=== PATIENT | male | born 1985 | race Caucasian/White ===

== ENCOUNTER 2020-12-12 07:17 | Inpatient (IN) | payer BC ==
[~2020-12-12] VITALS: Ht 193 cm; Wt 163.3 kg
[2020-12-12] VITALS (9 sets, daily range): BP systolic 95–150; BP diastolic 59–92
[2020-12-12] MEDS ORDERED: IV NORMAL SALINE 1000ML BAG 1,000 ML IV ONE ×2 (07:30→09:15)
--- NOTE | 2020-12-12 07:37 | PHYS DOC ---
Past Medical History Past Medical History: High Cholesterol, Other Additional Past Medical Histor: morbid obesity Past Surgical History: Other Additional Past Surgical Histo: vasectomy Smoking Status: Current Every Day Smoker Additional Information: 11/11- ppd Alcohol Use: Rarely General Adult EDM: Chief Complaint: URINARY FREQUENCY HPI: HPI: Patient is a 35 year old male who presented to ER for evaluation of dry mouth, frequent urination, constipation for a week. 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 Patient has no history of diabetic or hypertension. Patient however has a strong family history of diabetic. Patient denies any chest pain, no cough, no fever. Patient denies any abdominal pain. Patient is a smoker. Review of Systems: Review of Systems: Constitutional: Denies fever or chills. [] Eyes: Denies change in visual acuity. [] HENT: Denies nasal congestion or sore throat. [] Respiratory: Denies cough or shortness of breath. [] Cardiovascular: Denies chest pain or edema. [] GI: Denies abdominal pain, positive for nausea and constipation : Denies dysuria. Positive for frequent urination Musculoskeletal: Denies back pain or joint pain. [] Integument: Denies rash. [] Neurologic: Denies headache, focal weakness or sensory changes. [] Endocrine: Denies polyuria or polydipsia. [] Lymphatic: Denies swollen glands. [] Psychiatric: Denies depression or anxiety. [] Heart Score: Risk Factors: Risk Factors: DM, Current or recent (<one month) smoker, HTN, HLP, family history of CAD, obesity. Risk Scores: Score 0 - 3: 2.5% MACE over next 6 weeks - Discharge Home Score 4 - 6: 20.3% MACE over next 6 weeks - Admit for Clinical Observation Score 7 - 10: 72.7% MACE over next 6 weeks - Early Invasive Strategies Current Medications: Current Medications Medications (Trade) Dose Ordered Sig/Kristin Start Time Stop Time Status Last Admin Dose Admin Sodium Chloride 1,000 ml @ 1,000 mls/hr 1X ONCE 12/12/20 07:30 12/12/20 08:29 Allergies: Allergies: Allergies Coded Allergies Type Severity Reaction Last Updated Verified No Known Drug Allergies 12/12/20 No Physical Exam: PE: Constitutional: Well developed, well nourished, no acute distress, non-toxic appearance. [] HENT: Normocephalic, atraumatic, bilateral external ears normal, oral mucosa is very dried, no oral exudates, nose normal. [] Eyes: PERRLA, EOMI, conjunctiva normal, no discharge. [] Neck: Normal range of motion, no tenderness, supple, no stridor. [] Cardiovascular: Sinus tachycardia, regular rhythm, no murmur [] Lungs & Thorax: Bilateral breath sounds clear to auscultation [] Abdomen: Bowel sounds normal, soft, no tenderness, no masses, no pulsatile masses. [] Skin: Warm, dry, no erythema, no rash. [] Back: No tenderness, no CVA tenderness. [] Extremities: No tenderness, no cyanosis, no clubbing, ROM intact, no edema. [] Neurologic: Alert and oriented X 3, normal motor function, normal sensory function, no focal deficits noted. [] Psychologic: Affect normal, judgement normal, mood normal. [] Current Patient Data: Labs: Laboratory Tests Test 12/12/20 07:42 12/12/20 08:00 12/12/20 08:15 White Blood Count 12.7 x10^3/uL Red Blood Count 5.66 x10^6/uL Hemoglobin 16.5 g/dL Hematocrit 49.4 % Mean Corpuscular Volume 87 fL Mean Corpuscular Hemoglobin 29 pg Mean Corpuscular Hemoglobin Concent 33 g/dL Red Cell Distribution Width 13.4 % Platelet Count 296 x10^3/uL Neutrophils (%) (Auto) 64 % Lymphocytes (%) (Auto) 25 % Monocytes (%) (Auto) 8 % Eosinophils (%) (Auto) 2 % Basophils (%) (Auto) 2 % Neutrophils # (Auto) 8.1 x10^3/uL Lymphocytes # (Auto) 3.1 x10^3/uL Monocytes # (Auto) 1.0 x10^3/uL Eosinophils # (Auto) 0.3 x10^3/uL Basophils # (Auto) 0.2 x10^3/uL Sodium Level 127 mmol/L Potassium Level 4.9 mmol/L Chloride Level 88 mmol/L Carbon Dioxide Level 19 mmol/L Anion Gap 20 Blood Urea Nitrogen 28 mg/dL Creatinine 1.5 mg/dL Estimated GFR (Cockcroft-Gault) 52.7 BUN/Creatinine Ratio 19 Glucose Level 738 mg/dL Calcium Level 9.9 mg/dL Magnesium Level 2.3 mg/dL Total Bilirubin 0.5 mg/dL Aspartate Amino Transf (AST/SGOT) Pending Alanine Aminotransferase (ALT/SGPT) Pending Alkaline Phosphatase 174 U/L Total Protein 7.4 g/dL Albumin 3.5 g/dL Albumin/Globulin Ratio 0.9 Acetone Level Sm pos Urine Collection Type Unknown Urine Color Yellow Urine Clarity Clear Urine pH 5.0 Urine Specific [place] >=1.030 Urine Protein Negative mg/dL Urine Glucose (UA) >=1000 mg/dL Urine Ketones (Stick) 40 mg/dL Urine Blood Negative Urine Nitrite Negative Urine Bilirubin Negative Urine Urobilinogen Dipstick 0.2 mg/dL Urine Leukocyte Esterase Negative Urine RBC 0 /HPF Urine WBC 0 /HPF Urine Bacteria 0 /HPF O2 Saturation 94 % Arterial Blood pH 7.35 Arterial Blood pCO2 at Patient Temp 31 mmHg Arterial Blood pO2 at Patient Temp 73 mmHg Arterial Blood HCO3 17 mmol/L Arterial Blood Base Excess -7 mmol/L FiO2 21 Current Medications Medications (Trade) Dose Ordered Sig/Kristin Route PRN Reason Start Time Stop Time Status Last Admin Dose Admin Sodium Chloride 1,000 ml @ 1,000 mls/hr 1X ONCE IV 12/12/20 07:30 12/12/20 08:29 DC 12/12/20 07:48 Insulin Human Regular (HumuLIN R VIAL) 15 unit 1X ONCE IV 12/12/20 08:45 12/12/20 08:46 DC 12/12/20 08:48 Vital Signs: Vital Signs Date Time Temp Pulse Resp B/P (MAP) Pulse Ox O2 Delivery O2 Flow Rate FiO2 12/12/20 07:23 99.1 129 20 182/114 (136) 96 Room Air 99.1 EKG: EKG: Current Medications Medications (Trade) Dose Ordered Sig/Kristin Route PRN Reason Start Time Stop Time Status Last Admin Dose Admin Sodium Chloride 1,000 ml @ 1,000 mls/hr 1X ONCE IV 12/12/20 07:30 12/12/20 08:29 12/12/20 07:48 [] Radiology/Procedures: Radiology/Procedures: [] Course & Med Decision Making: Course & Med Decision Making Pertinent Labs and Imaging studies reviewed. (See chart for details) Patient is a 35-year-old male with new onset diabetic, in mild DKA, dehydration, hypertensive urgency. Patient will be admitted to hospital for further evaluation and treatment. Discussed with Dr. Payne who agreed to admit the patient. Patient was given IV fluid, IV insulin in the ER. His blood pressure elevated and he will be given some beta-reny. Critical care time was [30] minutes which includes time at bedside, spent in discussion of patient's care with specialist and/or family members, with interpretation of laboratory and/or radiological studies and is exclusive of procedures. Dragon Disclaimer: Dragon Disclaimer: This electronic medical record was generated, in whole or in part, using a voice recognition dictation system. Departure Departure Impression: Primary Impression: DKA (diabetic ketoacidoses) Additional Impressions: Hypertension Dehydration Disposition: 09 ADMITTED INPT THIS HOSP Admitting Physician: ESTRADA (Dr. Payne) Condition: STABLE (DR. PAYNE) BREANNA HOLCOMB DO Dec 12, 2020 07:37
[2020-12-12 08:05] LABS: BASO # 0.2 x10^3/uL (0.0-0.2); BASO % 2 % (0-3); EOS # 0.3 x10^3/uL (0.0-0.7); EOS % 2 % (0-3); HEMATOCRIT 49.4 % (39.0-53.0); HEMOGLOBIN 16.5 g/dL (13.0-17.5); LYMPH # 3.1 x10^3/uL (1.0-4.8); LYMPH % 25 % (24-48); MEAN CORPUSCULAR HEMOGLOBIN 29 pg (25-35); MEAN CORPUSCULAR HGB CONC 33 g/dL (31-37); MEAN CORPUSCULAR VOLUME 87 fL (79-100); MONO % 8 % (0-9); NEUT # 8.1 x10^3/uL (1.8-7.7); NEUT % 64 % (31-73); PLATELET COUNT 296 x10^3/uL (140-400); RED BLOOD COUNT 5.66 x10^6/uL (4.30-5.70); RED CELL DISTRIBUTION WIDTH 13.4 % (11.5-14.5); WHITE BLOOD COUNT 12.7 x10^3/uL (4.0-11.0)
[2020-12-12 08:18] LABS: BILIRUBIN,URINE NEGATIVE (NEG); CLARITY,URINE CLEAR; COLOR,URINE YELLOW; NITRITE,URINE NEGATIVE (NEG); PROTEIN,URINE NEGATIVE (NEG-TRACE); UROBILINOGEN,URINE 0.2 mg/dL (0.2 mg/dL)
[2020-12-12 08:27] LABS: BACTERIA,URINE 0 /HPF (0-FEW); RBC,URINE 0 /HPF (0-2); WBC,URINE 0 /HPF (0-4)
[2020-12-12 08:28] LABS: BASE EXCESS ABG -7 mmol/L (-3-3); HCO3 ABG 17 mmol/L (21-28); PCO2 ABG 31 mmHg (35-46); PO2 ABG 73 mmHg (85-108); SAT O2 ABG 94 % (92-99)
[2020-12-12 08:32] LABS: FIO2 ABG 21
[2020-12-12] MEDS ORDERED: INSULIN REGULAR 100 UNIT/ML 3ML VIAL. IV ONE (08:45)
[2020-12-12 08:47] LABS: ALBUMIN 3.5 g/dL (3.4-5.0); ALBUMIN/GLOBULIN RATIO 0.9 (1.0-1.7); CALCIUM 9.9 mg/dL (8.5-10.1); CREATININE 1.5 mg/dL (0.7-1.3); GFR 52.7; MAGNESIUM 2.3 mg/dL (1.8-2.4); POTASSIUM 4.9 mmol/L (3.5-5.1); TOTAL BILIRUBIN 0.5 mg/dL (0.2-1.0); TOTAL PROTEIN 7.4 g/dL (6.4-8.2)
[2020-12-12] MEDS ORDERED: ZOLPIDEM 5 MG TABLET. PO PRN (09:15)
[2020-12-12] MEDS ORDERED: ONDANSETRON PF 4 MG/2 ML VIAL. IVP PRN (09:15)
[2020-12-12] MEDS ORDERED: METOPROLOL IV PUSH 5 MG/5 ML VIAL. IVP ONE (09:15)
[2020-12-12] MEDS ORDERED: BISACODYL 10 MG SUPP.RECT. PR PRN (09:15)
[2020-12-12] MEDS ORDERED: POTASSIUM CHLORIDE 10MEQ 100 ML IV PRN ×3 (09:15)
[2020-12-12] MEDS ORDERED: 0.9 % SODIUM CHLORIDE 10 ML DISP.SYRIN. IV PRN (09:15)
[2020-12-12] MEDS: IV NORMAL SALINE 1000ML BAG 1,000 ML IV SCH ×5 (09:15→21:55)
[2020-12-12] MEDS ORDERED: INSULIN REGULAR VIAL 100 UNIT in IV NORMAL SALINE 100ML 100 ML IV PRN (09:15)
[2020-12-12] MEDS ORDERED: ONDANSETRON PF 4 MG/2 ML VIAL. IV PRN (09:15)
--- NOTE | 2020-12-12 09:18 | PDOC1 ---
History and Physical Date of Admission Date of Admission DATE: 12/12/20 TIME: 09:18 Identification/Chief Complaint Chief Complaint Polyuria Source Source: Patient History of Present Illness History of Present Illness Mr Purvis is a 35 year old male w/ PMHx HLD, morbid obesity, smoker who presented to ED c/o dry mouth, frequent urination, constipation for a week. He notes he was concerned when he was urinating heavily until late yesterday evening and has not urinated since then and came to the ED for further evaluation. Patient denies any chest pain, no cough, no fever. Patient denies any abdominal pain. No recent sick contacts. 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 He has 13 children at home none of which are sick. He does have a strong family history of high cholesterol hypertension and diabetes. On labs found with WBC 12.7, Hb 16.5, platelets 296, NA 127, K4.9, BUN 28, CR 1.5, glucose 738. Alkaline phosphatase 174. Urine positive for ketones and gap of greater than 20. ABG with pH 7.35 PCO2 31 PO2 73 on normal air. Patient was given IV fluid, IV insulin in the ER. His blood pressure was elevated and was given IV metoprolol. Started on IVF and admitted to ICU for further treatment. Past Medical History Cardiovascular: Hyperlipidemia Past Surgical History Past Surgical History: Other (Vasectomy) Family History Family History: Diabetes, High Cholestrol, Hypertension Social History Smoke: <1 pack per day ALCOHOL: social Drugs: None Current Problem List Problem List Problems Medical Problems: (1) Dehydration Status: Acute (2) Diabetes Status: Acute (3) DKA (diabetic ketoacidoses) Status: Acute (4) Hypertension Status: Acute Current Medications Current Medications Current Medications Sodium Chloride 1,000 ml @ 1,000 mls/hr 1X ONCE IV Last administered on 12/12/20at 07:48; Start 12/12/20 at 07:30; Stop 12/12/20 at 08:29; Status DC Insulin Human Regular (HumuLIN R VIAL) 15 unit 1X ONCE IV Last administered on 12/12/20at 08:48; Start 12/12/20 at 08:45; Stop 12/12/20 at 08:46; Status DC Sodium Chloride 1,000 ml @ 1,000 mls/hr 1X ONCE IV ; Start 12/12/20 at 09:15; Stop 12/12/20 at 10:14 Metoprolol Tartrate (Lopressor Vial) 5 mg 1X ONCE IVP ; Start 12/12/20 at 09:15; Stop 12/12/20 at 09:16; Status DC Ondansetron HCl (Zofran) 4 mg PRN Q8HRS PRN IV NAUSEA/VOMITING; Start 12/12/20 at 09:15; Stop 12/13/20 at 09:14 Sodium Chloride 1,000 ml @ 125 mls/hr Q8H IV ; Start 12/12/20 at 09:15; Stop 12/13/20 at 09:14 Acetaminophen (Tylenol) 650 mg PRN Q6HRS PRN PO Headaches, Temp > 101.5'; Start 12/12/20 at 09:15; Status UNV Allergies Allergies: Coded Allergies: No Known Drug Allergies (Unverified , 12/12/20) ROS General: YES: Fatigue, Malaise, Appetite; No: Chills, Night Sweats, Other PSYCHOLOGICAL ROS: No: Anxiety, Behavioral Disorder, Concentration difficultie, Decreased libido, Depression, Disorientation, Hallucinations, Hostility, Irritablity, Memory difficulties, Mood Swings, Obsessive thoughts, Physical abuse, Sexual abuse, Sleep disturbances, Suicidal ideation, Other Eyes: Yes Blurry vision, Yes Dry eyes; No Decreased vision, No Double vision, No Excessive tearing, No Eye Pain, No Itchy Eyes, No Loss of vision, No Photophobia, No Scotomata, No Uses contacts, No Uses glasses, No Other HEENT: YES: Heacaches; No: Visual Changes, Hearing change, Nasal congestion, Nasal discharge, Oral lesions, Sinus pain, Sore Throat, Epistaxis, Sneezing, Snoring, Tinnitus, Vertigo, Vocal changes, Other ALLERGY AND IMMUNOLOGY: No: Hives, Insect Bite Sensitivity, Itchy/Watery Eyes, Nasal Congestion, Post Nasal Drip, Seasonal Allergies, Other Hematological and Lymphatic: No: Bleeding Problems, Blood Clots, Blood Transfusions, Brusing, Night Sweats, Pallor, Swollen Lymph Nodes, Other ENDOCRINE: YES: Polydipsia/polyuria; No: Breast Changes, Galactorrhea, Hair Pattern Changes, Hot Flashes, Malaise/lethargy, Mood Swings, Palpitations, Skin Changes, Temperature Intolerance, Unexpected Weight Changes, Other Breast: No New/Changing Breast Lumps, No Nipple changes, No Nipple discharge, No Other Respiratory: No: Cough, Hemoptysis, Orthopnea, Pleuritic Pain, Shortness of breath, SOB with excertion, Sputum Changes, Stridor, Tachypnea, Wheezing, Other Cardiovascular: No Chest Pain, No Palpitations, No Orthopnea, No Paroxysmal Noc. Dyspnea, No Edema, No Lt Headedness, No Other Gastrointestinal: No Nausea, No Vomiting, No Abdominal Pain, No Diarrhea, No Constipation, No Melena, No Hematochezia, No Other Genitourinary: No Dysuria, No Frequency, No Incontinence, No Hematuria, No Retention, No Discharge, No Urgency, No Pain, No Flank Pain, No Other, No , No , No , No , No , No , No Musculoskeletal: No Gait Disturbance, No Joint Pain, No Joint Stiffness, No Joint Swelling, No Muscle Pain, No Muscular Weakness, No Pain In:, No Swelling In:, No Other Neurological: No Behavorial Changes, No Bowel/Bladder ControlChng, No Confusion, No Dizziness, No Gait Disturbance, No Headaches, No Impaired Coord/balance, No Memory Loss, No Numbness/Tingling, No Seizures, No Speech Problems, No Tremors, No Visual Changes, No Weakness, No Other Skin: No Dry Skin, No Eczema, No Hair Changes, No Lumps, No Mole Changes, No Mottling, No Nail Changes, No Pruritus, No Rash, No Skin Lesion Changes, No Other, No Acne Physical Exam General: Alert, Oriented X3, Cooperative, moderate distress HEENT: Atraumatic, PERRLA, EOMI, Mucous membr. moist/pink Lungs: Clear to auscultation, Normal air movement Heart: S1S2, RRR, no thrills, no rubs, no gallops, no murmurs Abdomen: Normal bowel sounds, Soft, No tenderness, No hepatosplenomegaly, No masses Extremities: No clubbing, No cyanosis, No edema, Normal pulses, No tenderness/swelling Skin: No rashes, No breakdown, No significant lesion Neuro: Normal gait, Normal speech, Strength at 5/5 X4 ext, Normal tone, Sensation intact, Cranial nerves 3-12 NL, Reflexes 2+ Psych/Mental Status: Mental status NL, Mood NL Vitals Vitals Vital Signs Date Time Temp Pulse Resp B/P (MAP) Pulse Ox O2 Delivery O2 Flow Rate FiO2 12/12/20 08:55 124 20 205/91 (129) 96 Room Air 12/12/20 07:23 99.1 99.1 Labs Labs Laboratory Tests Test 12/12/20 07:42 12/12/20 08:00 12/12/20 08:15 White Blood Count 12.7 x10^3/uL (4.0-11.0) Red Blood Count 5.66 x10^6/uL (4.30-5.70) Hemoglobin 16.5 g/dL (13.0-17.5) Hematocrit 49.4 % (39.0-53.0) Mean Corpuscular Volume 87 fL (79-100) Mean Corpuscular Hemoglobin 29 pg (25-35) Mean Corpuscular Hemoglobin Concent 33 g/dL (31-37) Red Cell Distribution Width 13.4 % (11.5-14.5) Platelet Count 296 x10^3/uL (140-400) Neutrophils (%) (Auto) 64 % (31-73) Lymphocytes (%) (Auto) 25 % (24-48) Monocytes (%) (Auto) 8 % (0-9) Eosinophils (%) (Auto) 2 % (0-3) Basophils (%) (Auto) 2 % (0-3) Neutrophils # (Auto) 8.1 x10^3/uL (1.8-7.7) Lymphocytes # (Auto) 3.1 x10^3/uL (1.0-4.8) Monocytes # (Auto) 1.0 x10^3/uL (0.0-1.1) Eosinophils # (Auto) 0.3 x10^3/uL (0.0-0.7) Basophils # (Auto) 0.2 x10^3/uL (0.0-0.2) Sodium Level 127 mmol/L (136-145) Potassium Level 4.9 mmol/L (3.5-5.1) Chloride Level 88 mmol/L (98-107) Carbon Dioxide Level 19 mmol/L (21-32) Anion Gap 20 (6-14) Blood Urea Nitrogen 28 mg/dL (8-26) Creatinine 1.5 mg/dL (0.7-1.3) Estimated GFR (Cockcroft-Gault) 52.7 BUN/Creatinine Ratio 19 (6-20) Glucose Level 738 mg/dL (70-99) Calcium Level 9.9 mg/dL (8.5-10.1) Magnesium Level 2.3 mg/dL (1.8-2.4) Total Bilirubin 0.5 mg/dL (0.2-1.0) Alkaline Phosphatase 174 U/L (46-116) Total Protein 7.4 g/dL (6.4-8.2) Albumin 3.5 g/dL (3.4-5.0) Albumin/Globulin Ratio 0.9 (1.0-1.7) Acetone Level Sm pos (NEG) Urine Collection Type Unknown Urine Color Yellow Urine Clarity Clear Urine pH 5.0 (<5.0-8.0) Urine Specific [place] >=1.030 (1.000-1.030) Urine Protein Negative mg/dL (NEG-TRACE) Urine Glucose (UA) >=1000 mg/dL (NEG) Urine Ketones (Stick) 40 mg/dL (NEG) Urine Blood Negative (NEG) Urine Nitrite Negative (NEG) Urine Bilirubin Negative (NEG) Urine Urobilinogen Dipstick 0.2 mg/dL (0.2 mg/dL) Urine Leukocyte Esterase Negative (NEG) Urine RBC 0 /HPF (0-2) Urine WBC 0 /HPF (0-4) Urine Bacteria 0 /HPF (0-FEW) O2 Saturation 94 % (92-99) Arterial Blood pH 7.35 (7.35-7.45) Arterial Blood pCO2 at Patient Temp 31 mmHg (35-46) Arterial Blood pO2 at Patient Temp 73 mmHg (85-108) Arterial Blood HCO3 17 mmol/L (21-28) Arterial Blood Base Excess -7 mmol/L (-3-3) FiO2 21 Laboratory Tests Test 12/12/20 07:42 12/12/20 08:00 12/12/20 08:15 White Blood Count 12.7 x10^3/uL (4.0-11.0) Red Blood Count 5.66 x10^6/uL (4.30-5.70) Hemoglobin 16.5 g/dL (13.0-17.5) Hematocrit 49.4 % (39.0-53.0) Mean Corpuscular Volume 87 fL (79-100) Mean Corpuscular Hemoglobin 29 pg (25-35) Mean Corpuscular Hemoglobin Concent 33 g/dL (31-37) Red Cell Distribution Width 13.4 % (11.5-14.5) Platelet Count 296 x10^3/uL (140-400) Neutrophils (%) (Auto) 64 % (31-73) Lymphocytes (%) (Auto) 25 % (24-48) Monocytes (%) (Auto) 8 % (0-9) Eosinophils (%) (Auto) 2 % (0-3) Basophils (%) (Auto) 2 % (0-3) Neutrophils # (Auto) 8.1 x10^3/uL (1.8-7.7) Lymphocytes # (Auto) 3.1 x10^3/uL (1.0-4.8) Monocytes # (Auto) 1.0 x10^3/uL (0.0-1.1) Eosinophils # (Auto) 0.3 x10^3/uL (0.0-0.7) Basophils # (Auto) 0.2 x10^3/uL (0.0-0.2) Sodium Level 127 mmol/L (136-145) Potassium Level 4.9 mmol/L (3.5-5.1) Chloride Level 88 mmol/L (98-107) Carbon Dioxide Level 19 mmol/L (21-32) Anion Gap 20 (6-14) Blood Urea Nitrogen 28 mg/dL (8-26) Creatinine 1.5 mg/dL (0.7-1.3) Estimated GFR (Cockcroft-Gault) 52.7 BUN/Creatinine Ratio 19 (6-20) Glucose Level 738 mg/dL (70-99) Calcium Level 9.9 mg/dL (8.5-10.1) Magnesium Level 2.3 mg/dL (1.8-2.4) Total Bilirubin 0.5 mg/dL (0.2-1.0) Alkaline Phosphatase 174 U/L (46-116) Total Protein 7.4 g/dL (6.4-8.2) Albumin 3.5 g/dL (3.4-5.0) Albumin/Globulin Ratio 0.9 (1.0-1.7) Acetone Level Sm pos (NEG) Urine Collection Type Unknown Urine Color Yellow Urine Clarity Clear Urine pH 5.0 (<5.0-8.0) Urine Specific [place] >=1.030 (1.000-1.030) Urine Protein Negative mg/dL (NEG-TRACE) Urine Glucose (UA) >=1000 mg/dL (NEG) Urine Ketones (Stick) 40 mg/dL (NEG) Urine Blood Negative (NEG) Urine Nitrite Negative (NEG) Urine Bilirubin Negative (NEG) Urine Urobilinogen Dipstick 0.2 mg/dL (0.2 mg/dL) Urine Leukocyte Esterase Negative (NEG) Urine RBC 0 /HPF (0-2) Urine WBC 0 /HPF (0-4) Urine Bacteria 0 /HPF (0-FEW) O2 Saturation 94 % (92-99) Arterial Blood pH 7.35 (7.35-7.45) Arterial Blood pCO2 at Patient Temp 31 mmHg (35-46) Arterial Blood pO2 at Patient Temp 73 mmHg (85-108) Arterial Blood HCO3 17 mmol/L (21-28) Arterial Blood Base Excess -7 mmol/L (-3-3) FiO2 21 VTE Prophylaxis Ordered VTE Prophylaxis Devices: No VTE Pharmacological Prophylaxi: Yes Assessment/Plan Assessment/Plan A/P: DKA (diabetic ketoacidoses) -IV insulin. Will convert to Lantus and scheduled when his gap closes and he can take p.o. 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 Hypertension -not previously diagnosed will monitor BP while inpatient. If creatinine improves would be appropriate to start on OSEAS. HLD - cont statin Smoker - counseled on cessation SERGO -vasomotor nephropathy from DKA. Will hydrate. Hyponatremia -related to DKA will monitor. Leukocytosis -likely related to DKA, no infectious etiology apparent. Meet SIRS criteria but does not appear septic. We will hold off on antibiotics. FEN - NPO PPX - Lovenox FULL CODE Dispo - ICU for DKA Justifications for Admission General Conditions Poss tachycardia?: Yes Poss Metaboilic Acidosis?: Yes Justification for admission: Patient has tachycardia (> 100 beats per minute) or hypotension (SBP < 90 mm Hg) leading to inadequate systemic perfusion as indicated by metabolic acidosis with arterial pH of less than 7.35. Other Justification DESIRE PAYNE MD Dec 12, 2020 09:18
[2020-12-12] MEDS ORDERED: INSULIN,REGULAR 100 UNIT DRIP 100 ML IV PRN (09:30)
[2020-12-12 12:14] LABS: CALCIUM 9.1 mg/dL (8.5-10.1); CREATININE 1.2 mg/dL (0.7-1.3)
[2020-12-12 12:15] LABS: GFR 68.1; MAGNESIUM 2.4 mg/dL (1.8-2.4)
[2020-12-12] MEDS ORDERED: ATOR40TA59 PO (12:20)
[2020-12-12] MEDS ORDERED: POTASSIUM CHLORIDE 10MEQ 100 ML IV SCH (13:00)
[2020-12-12] MEDS: POTASSIUM CHLORIDE 10MEQ 100 ML IV SCH ×2 (13:08→14:16)
[2020-12-12] MEDS: HEPARIN for SUB-Q USE 5,000 UNIT/ML VIAL. SQ SCH ×2 (14:27→22:01)
[2020-12-12] MEDS ORDERED: DEXTROSE 50% 25 GM / 50ML DISP.SYRIN. IV PRN (14:45)
[2020-12-12] MEDS ORDERED: INSULIN GLARGINE SYRINGE. SQ ONE (14:45)
[2020-12-12] MEDS: LISINOPRIL 10 MG TABLET PO SCH (16:50)
[2020-12-12] MEDS: LINAGLIPTIN 5 MG TABLET PO SCH (16:50)
[2020-12-12] MEDS: INSULIN LISPRO 300 UNITS/3 ML VIAL. SQ SCH ×3 (17:01→22:02)
[2020-12-12] MEDS: ACETAMINOPHEN 325 MG TABLET. PO PRN (17:09)
[2020-12-12] MEDS: FAMOTIDINE 20 MG/2 ML VIAL IVP SCH (21:57)
[2020-12-13] MEDS: ACETAMINOPHEN 325 MG TABLET. PO PRN ×2 (00:22→06:30)
[2020-12-13 02:52] VITALS: BP 141/83
[2020-12-13] MEDS: HEPARIN for SUB-Q USE 5,000 UNIT/ML VIAL. SQ SCH ×3 (05:57→21:47)
[2020-12-13 06:16] LABS: HEMOGLOBIN A1C 12.2 % (4.8-5.6)
[2020-12-13 07:00] VITALS: BP 112/74
[2020-12-13] MEDS: FAMOTIDINE 20 MG/2 ML VIAL IVP SCH ×2 (08:07→21:41)
[2020-12-13] MEDS: metFORMIN 500 MG TABLET PO SCH ×2 (08:07→16:53)
[2020-12-13] MEDS: LINAGLIPTIN 5 MG TABLET PO SCH (08:10)
[2020-12-13] MEDS: LISINOPRIL 10 MG TABLET PO SCH (08:10)
[2020-12-13] MEDS: INSULIN LISPRO 300 UNITS/3 ML VIAL. SQ SCH ×7 (08:17→21:00)
--- NOTE | 2020-12-13 09:15 | NUR ---
SW following. Discussed with RN, pt from home, room air, ada diet. Pt wanting to discharge. RN advised no SW needs, anticipate discharge home with self care tomorrow (12/14/20).
[2020-12-13 11:00] VITALS: BP 127/78
--- NOTE | 2020-12-13 13:51 | PDOC ---
[facility] PROGRESS NOTE Date of Service DOS: DATE: 12/13/20 TIME: 13:47 Chief Complaint Chief Complaint A/P: DKA (diabetic ketoacidoses) -IV insulin. Will convert to Lantus and scheduled when his gap closes and he can take p.o. 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 Hypertension -not previously diagnosed will monitor BP while inpatient. If creatinine improves would be appropriate to start on OSEAS. HLD - cont statin Smoker - counseled on cessation SERGO -vasomotor nephropathy from DKA. Will hydrate. Hyponatremia -related to DKA will monitor. Leukocytosis -likely related to DKA, no infectious etiology apparent. Meet SIRS criteria but does not appear septic. We will hold off on antibiotics. History of Present Illness History of Present Illness Mr Purvis is a 35 year old male w/ PMHx HLD, morbid obesity, smoker who presented to ED c/o dry mouth, frequent urination, constipation for a week. He notes he was concerned when he was urinating heavily until late yesterday evening and has not urinated since then and came to the ED for further evaluation. Patient denies any chest pain, no cough, no fever. Patient denies any abdominal pain. No recent sick contacts. 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 He has 13 children at home none of which are sick. He does have a strong family history of high cholesterol hypertension and diabetes. On labs found with WBC 12.7, Hb 16.5, platelets 296, NA 127, K4.9, BUN 28, CR 1.5, glucose 738. Alkaline phosphatase 174. Urine positive for ketones and gap of greater than 20. ABG with pH 7.35 PCO2 31 PO2 73 on normal air. Patient was given IV fluid, IV insulin in the ER. His blood pressure was elevated and was given IV metoprolol. Started on IVF and admitted to ICU for further treatment. 23: Patient transferred out of ICU after gap closed. He denies shortness of breath, chest pain, or nausea. Will continue on insulin SQ for tighter blood sugar management. 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 Discussed with patient and , and they are agreement with this plan. He has family history of type 2 diabetes and PCP he can follow-up with. Will obtain lipid panel and likely discharge on 2 oral hypoglycemic agents. Vitals/I&O Vitals/I&O: Vital Signs Date Time Temp Pulse Resp B/P (MAP) Pulse Ox O2 Delivery O2 Flow Rate FiO2 12/13/20 11:00 98.1 98 20 127/78 (94) 93 Room Air 98.1 I & O 12/12/20 12/12/20 12/13/20 15:00 23:00 07:00 Intake Total 6020 ml 1579 ml 1750 ml Output Total 2225 ml 450 ml 450 ml Balance 3795 ml 1129 ml 1300 ml Physical Exam General: Alert, Oriented X3, Cooperative, No acute distress Heart: Regular rate Lungs: Clear Abdomen: Normal bowel sounds, Soft, No tenderness, No hepatosplenomegaly, No masses Extremities: No clubbing, No cyanosis, No edema, Normal pulses, No tenderness/swelling Skin: No rashes, No breakdown, No significant lesion Labs Labs: Laboratory Tests Test 12/12/20 14:27 12/12/20 16:49 12/12/20 20:53 12/13/20 07:03 Glucose (Fingerstick) 311 mg/dL (70-99) 290 mg/dL (70-99) 339 mg/dL (70-99) 337 mg/dL (70-99) Test 12/13/20 11:33 Glucose (Fingerstick) 345 mg/dL (70-99) Assessment and Plan Assessmemt and Plan Problems Medical Problems: (1) Dehydration Status: Acute (2) Diabetes Status: Acute (3) DKA (diabetic ketoacidoses) Status: Acute (4) Hypertension Status: Acute Comment Review of Relevant I have reviewed the following items brett (where applicable) has been applied. Medications: Current Medications Medications (Trade) Dose Ordered Sig/Kristin Route PRN Reason Start Time Stop Time Status Last Admin Dose Admin Famotidine (Pepcid Vial) 20 mg BID IVP 12/12/20 21:00 12/13/20 08:07 Heparin Sodium (Porcine) (Heparin Sodium) 5,000 unit Q8HRS SQ 12/12/20 14:00 12/13/20 13:03 Insulin Human Lispro (HumaLOG) 0-9 UNITS TIDACHC SQ 12/12/20 16:30 12/13/20 11:53 Insulin Glargine (Lantus Syringe) 25 unit 1X ONCE SQ 12/12/20 14:45 12/12/20 14:46 DC 12/12/20 14:50 Insulin Human Lispro (HumaLOG) 8 units TIDWMEALS SQ 12/12/20 17:00 12/13/20 11:50 DC 12/13/20 08:18 Lisinopril (Prinivil) 5 mg DAILY PO 12/12/20 16:00 12/13/20 08:10 Linagliptin (Tradjenta) 5 mg DAILY PO 12/12/20 15:00 12/13/20 08:10 Metformin HCl (Glucophage) 500 mg BIDWMEALS PO 12/13/20 08:00 12/13/20 08:07 Justifications for Admission General Conditions Poss tachycardia?: Yes Poss Metaboilic Acidosis?: Yes Justification for admission: Patient has tachycardia (> 100 beats per minute) or hypotension (SBP < 90 mm Hg) leading to inadequate systemic perfusion as indicated by metabolic acidosis with arterial pH of less than 7.35. Other Justification REINALDO MOROCHO MD Dec 13, 2020 13:51
[2020-12-13 15:58] VITALS: BP 134/79
[2020-12-13 19:00] VITALS: BP 145/90
[2020-12-13] MEDS ORDERED: INSULIN GLARGINE SYRINGE. SQ SCH ×2 (21:00)
[2020-12-13] MEDS ORDERED: INSULIN LISPRO 300 UNITS/3 ML VIAL. SQ ONE (22:00)
[2020-12-13 23:00] VITALS: BP 117/59
[2020-12-14 03:00] VITALS: BP 139/71
[2020-12-14] MEDS: HEPARIN for SUB-Q USE 5,000 UNIT/ML VIAL. SQ SCH (06:07)
[2020-12-14 07:00] VITALS: BP 102/57
[2020-12-14 07:17] LABS: BASO # 0.2 x10^3/uL (0.0-0.2); BASO % 2 % (0-3); EOS # 0.5 x10^3/uL (0.0-0.7); EOS % 6 % (0-3); LYMPH # 2.1 x10^3/uL (1.0-4.8); LYMPH % 28 % (24-48); MEAN CORPUSCULAR HEMOGLOBIN 30 pg (25-35); MEAN CORPUSCULAR HGB CONC 35 g/dL (31-37); MEAN CORPUSCULAR VOLUME 85 fL (79-100); MONO # 0.7 x10^3/uL (0.0-1.1); MONO % 9 % (0-9); NEUT # 4.2 x10^3/uL (1.8-7.7); NEUT % 55 % (31-73); PLATELET COUNT 225 x10^3/uL (140-400); RED BLOOD COUNT 5.07 x10^6/uL (4.30-5.70); RED CELL DISTRIBUTION WIDTH 13.7 % (11.5-14.5); WHITE BLOOD COUNT 7.7 x10^3/uL (4.0-11.0)
[2020-12-14] MEDS: LINAGLIPTIN 5 MG TABLET PO SCH (07:36)
[2020-12-14] MEDS: FAMOTIDINE 20 MG/2 ML VIAL IVP SCH (07:36)
[2020-12-14 07:37] VITALS: BP 139/71
[2020-12-14] MEDS: LISINOPRIL 10 MG TABLET PO SCH (07:37)
[2020-12-14 07:40] LABS: CALCIUM 8.4 mg/dL (8.5-10.1); CREATININE 0.8 mg/dL (0.7-1.3); GFR 108.8; POTASSIUM 3.7 mmol/L (3.5-5.1)
[2020-12-14] MEDS: INSULIN LISPRO 300 UNITS/3 ML VIAL. SQ SCH ×2 (07:45)
--- NOTE | 2020-12-14 07:49 | PDOC ---
[facility] PROGRESS NOTE Date of Service DOS: DATE: 12/14/20 TIME: 07:47 Chief Complaint Chief Complaint A/P: DKA (diabetic ketoacidoses) -IV insulin. Will convert to Lantus and scheduled when his gap closes and he can take p.o. 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 Hypertension -not previously diagnosed will monitor BP while inpatient. If creatinine improves would be appropriate to start on OSEAS. HLD - cont statin Smoker - counseled on cessation SERGO -vasomotor nephropathy from DKA. Will hydrate. Hyponatremia -related to DKA will monitor. Leukocytosis -likely related to DKA, no infectious etiology apparent. Meet SIRS criteria but does not appear septic. We will hold off on antibiotics. History of Present Illness History of Present Illness Mr Purvis is a 35 year old male w/ PMHx HLD, morbid obesity, smoker who presented to ED c/o dry mouth, frequent urination, constipation for a week. He notes he was concerned when he was urinating heavily until late yesterday evening and has not urinated since then and came to the ED for further evaluation. Patient denies any chest pain, no cough, no fever. Patient denies any abdominal pain. No recent sick contacts. 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 He has 13 children at home none of which are sick. He does have a strong family history of high cholesterol hypertension and diabetes. On labs found with WBC 12.7, Hb 16.5, platelets 296, NA 127, K4.9, BUN 28, CR 1.5, glucose 738. Alkaline phosphatase 174. Urine positive for ketones and gap of greater than 20. ABG with pH 7.35 PCO2 31 PO2 73 on normal air. Patient was given IV fluid, IV insulin in the ER. His blood pressure was elevated and was given IV metoprolol. Started on IVF and admitted to ICU for further treatment. 2/3: Patient transferred out of ICU after gap closed. He denies shortness of breath, chest pain, or nausea. Will continue on insulin SQ for tighter blood sugar management. 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 Discussed with patient and , and they are agreement with this plan. He has family history of type 2 diabetes and PCP he can follow-up with. Will obtain lipid panel and likely discharge on 2 oral hypoglycemic agents. 12/14: Patient seen and evaluated. No complaints today, denies chest pain or shortness of breath. Blood sugars are improving. Will discharge patient on 2 oral hypoglycemic agents. After discussion with patient and yesterday Follow-up with PCP for close monitoring of blood sugar and HbA1c. If A1c is not improving may needed to be started on insulin, but this is something we are trying to avoid. >30 minutes spent managing the discharge this patient. Vitals/I&O Vitals/I&O: Vital Signs Date Time Temp Pulse Resp B/P (MAP) Pulse Ox O2 Delivery O2 Flow Rate FiO2 12/14/20 07:37 89 139/71 12/14/20 03:00 98.3 18 96 98.3 12/13/20 20:00 Room Air I & O 12/13/20 12/13/20 12/14/20 15:00 23:00 07:00 Intake Total 250 ml Balance 250 ml Physical Exam General: Alert, Oriented X3, Cooperative, No acute distress Heart: Regular rate Lungs: Clear Abdomen: Normal bowel sounds, Soft, No tenderness, No hepatosplenomegaly, No masses Extremities: No clubbing, No cyanosis, No edema, Normal pulses, No tenderness/swelling Skin: No rashes, No breakdown, No significant lesion Labs Labs: Laboratory Tests Test 12/13/20 11:33 12/13/20 16:50 12/13/20 21:03 12/14/20 06:10 Glucose (Fingerstick) 345 mg/dL (70-99) 315 mg/dL (70-99) 375 mg/dL (70-99) White Blood Count 7.7 x10^3/uL (4.0-11.0) Red Blood Count 5.07 x10^6/uL (4.30-5.70) Hemoglobin 15.0 g/dL (13.0-17.5) Hematocrit 43.0 % (39.0-53.0) Mean Corpuscular Volume 85 fL (79-100) Mean Corpuscular Hemoglobin 30 pg (25-35) Mean Corpuscular Hemoglobin Concent 35 g/dL (31-37) Red Cell Distribution Width 13.7 % (11.5-14.5) Platelet Count 225 x10^3/uL (140-400) Neutrophils (%) (Auto) 55 % (31-73) Lymphocytes (%) (Auto) 28 % (24-48) Monocytes (%) (Auto) 9 % (0-9) Eosinophils (%) (Auto) 6 % (0-3) Basophils (%) (Auto) 2 % (0-3) Neutrophils # (Auto) 4.2 x10^3/uL (1.8-7.7) Lymphocytes # (Auto) 2.1 x10^3/uL (1.0-4.8) Monocytes # (Auto) 0.7 x10^3/uL (0.0-1.1) Eosinophils # (Auto) 0.5 x10^3/uL (0.0-0.7) Basophils # (Auto) 0.2 x10^3/uL (0.0-0.2) Test 12/14/20 07:18 Glucose (Fingerstick) 264 mg/dL (70-99) Assessment and Plan Assessmemt and Plan Problems Medical Problems: (1) Dehydration Status: Acute (2) Diabetes Status: Acute (3) DKA (diabetic ketoacidoses) Status: Acute (4) Hypertension Status: Acute Comment Review of Relevant I have reviewed the following items brett (where applicable) has been applied. Medications: Current Medications Medications (Trade) Dose Ordered Sig/Kristin Route PRN Reason Start Time Stop Time Status Last Admin Dose Admin Metformin HCl (Glucophage) 500 mg BIDWMEALS PO 12/13/20 08:00 12/13/20 21:55 DC 12/13/20 16:53 Insulin Glargine (Lantus Syringe) 35 unit QHS SQ 12/13/20 21:00 12/13/20 21:48 Insulin Human Lispro (HumaLOG) 10 units TIDWMEALS SQ 12/13/20 12:00 12/14/20 07:45 Metformin HCl (Glucophage) 1,000 mg BIDWMEALS PO 12/14/20 08:00 12/14/20 07:35 Insulin Human Lispro (HumaLOG) 17 units 1X ONCE SQ 12/13/20 22:00 12/13/20 22:01 DC 12/13/20 22:06 Justifications for Admission General Conditions Poss tachycardia?: Yes Poss Metaboilic Acidosis?: Yes Justification for admission: Patient has tachycardia (> 100 beats per minute) or hypotension (SBP < 90 mm Hg) leading to inadequate systemic perfusion as indicated by metabolic acidosis with arterial pH of less than 7.35. Other Justification REINALDO MOROCHO MD Dec 14, 2020 07:49
[2020-12-14 07:55] LABS: CHOLESTEROL 257 mg/dL (0-200)
[2020-12-14] MEDS ORDERED: LISI10TA16 PO (07:58)
[2020-12-14] MEDS ORDERED: LINA5TAB PO (07:58)
[2020-12-14] MEDS ORDERED: METF500T PO (07:58)
[2020-12-14] MEDS ORDERED: metFORMIN 500 MG TABLET PO SCH (08:00)
--- NOTE | 2020-12-14 08:02 | PDOC3 ---
Discharge Summary Visit Information Date of Admission: Dec 12, 2020 Date of Discharge: Dec 14, 2020 Final Diagnosis Problems Medical Problems: (1) Dehydration Status: Acute (2) Diabetes Status: Acute (3) DKA (diabetic ketoacidoses) Status: Acute (4) Hypertension Status: Acute Brief Hospital Course Allergies Allergies Coded Allergies Type Severity Reaction Last Updated Verified No Known Drug Allergies 12/12/20 No Vital Signs Vital Signs Date Time Temp Pulse Resp B/P (MAP) Pulse Ox O2 Delivery O2 Flow Rate FiO2 12/14/20 07:37 89 139/71 12/14/20 03:00 98.3 18 96 98.3 12/13/20 20:00 Room Air Lab Results Laboratory Tests Test 12/12/20 08:00 12/12/20 08:15 12/12/20 09:27 12/12/20 10:52 Urine Collection Type Unknown Urine Color Yellow Urine Clarity Clear Urine pH 5.0 (<5.0-8.0) Urine Specific [place] >=1.030 (1.000-1.030) Urine Protein Negative mg/dL (NEG-TRACE) Urine Glucose (UA) >=1000 mg/dL (NEG) Urine Ketones (Stick) 40 mg/dL (NEG) Urine Blood Negative (NEG) Urine Nitrite Negative (NEG) Urine Bilirubin Negative (NEG) Urine Urobilinogen Dipstick 0.2 mg/dL (0.2 mg/dL) Urine Leukocyte Esterase Negative (NEG) Urine RBC 0 /HPF (0-2) Urine WBC 0 /HPF (0-4) Urine Bacteria 0 /HPF (0-FEW) O2 Saturation 94 % (92-99) Arterial Blood pH 7.35 (7.35-7.45) Arterial Blood pCO2 at Patient Temp 31 mmHg (35-46) Arterial Blood pO2 at Patient Temp 73 mmHg (85-108) Arterial Blood HCO3 17 mmol/L (21-28) Arterial Blood Base Excess -7 mmol/L (-3-3) FiO2 21 Glucose (Fingerstick) 456 mg/dL (70-99) 430 mg/dL (70-99) Test 12/12/20 10:57 12/12/20 12:00 12/12/20 12:10 12/12/20 13:21 Phosphorus Level 5.8 mg/dL (2.6-4.7) Sodium Level 133 mmol/L (136-145) Potassium Level 4.0 mmol/L (3.5-5.1) Chloride Level 98 mmol/L (98-107) Carbon Dioxide Level 23 mmol/L (21-32) Anion Gap 12 (6-14) Blood Urea Nitrogen 21 mg/dL (8-26) Creatinine 1.2 mg/dL (0.7-1.3) Estimated GFR (Cockcroft-Gault) 68.1 Glucose Level 371 mg/dL (70-99) Hemoglobin A1c 12.2 % (4.8-5.6) Calcium Level 9.1 mg/dL (8.5-10.1) Magnesium Level 2.4 mg/dL (1.8-2.4) Thyroid Stimulating Hormone (TSH) 2.113 uIU/mL (0.358-3.74) Glucose (Fingerstick) 384 mg/dL (70-99) 316 mg/dL (70-99) Test 12/12/20 14:27 12/12/20 16:49 12/12/20 20:53 12/13/20 07:03 Glucose (Fingerstick) 311 mg/dL (70-99) 290 mg/dL (70-99) 339 mg/dL (70-99) 337 mg/dL (70-99) Test 12/13/20 11:33 12/13/20 16:50 12/13/20 21:03 12/14/20 06:10 Glucose (Fingerstick) 345 mg/dL (70-99) 315 mg/dL (70-99) 375 mg/dL (70-99) White Blood Count 7.7 x10^3/uL (4.0-11.0) Red Blood Count 5.07 x10^6/uL (4.30-5.70) Hemoglobin 15.0 g/dL (13.0-17.5) Hematocrit 43.0 % (39.0-53.0) Mean Corpuscular Volume 85 fL (79-100) Mean Corpuscular Hemoglobin 30 pg (25-35) Mean Corpuscular Hemoglobin Concent 35 g/dL (31-37) Red Cell Distribution Width 13.7 % (11.5-14.5) Platelet Count 225 x10^3/uL (140-400) Neutrophils (%) (Auto) 55 % (31-73) Lymphocytes (%) (Auto) 28 % (24-48) Monocytes (%) (Auto) 9 % (0-9) Eosinophils (%) (Auto) 6 % (0-3) Basophils (%) (Auto) 2 % (0-3) Neutrophils # (Auto) 4.2 x10^3/uL (1.8-7.7) Lymphocytes # (Auto) 2.1 x10^3/uL (1.0-4.8) Monocytes # (Auto) 0.7 x10^3/uL (0.0-1.1) Eosinophils # (Auto) 0.5 x10^3/uL (0.0-0.7) Basophils # (Auto) 0.2 x10^3/uL (0.0-0.2) Sodium Level 135 mmol/L (136-145) Potassium Level 3.7 mmol/L (3.5-5.1) Chloride Level 101 mmol/L (98-107) Carbon Dioxide Level 22 mmol/L (21-32) Anion Gap 12 (6-14) Blood Urea Nitrogen 11 mg/dL (8-26) Creatinine 0.8 mg/dL (0.7-1.3) Estimated GFR (Cockcroft-Gault) 108.8 Glucose Level 263 mg/dL (70-99) Calcium Level 8.4 mg/dL (8.5-10.1) Test 12/14/20 07:18 Glucose (Fingerstick) 264 mg/dL (70-99) Laboratory Tests Test 12/13/20 11:33 12/13/20 16:50 12/13/20 21:03 12/14/20 06:10 Glucose (Fingerstick) 345 mg/dL (70-99) 315 mg/dL (70-99) 375 mg/dL (70-99) White Blood Count 7.7 x10^3/uL (4.0-11.0) Red Blood Count 5.07 x10^6/uL (4.30-5.70) Hemoglobin 15.0 g/dL (13.0-17.5) Hematocrit 43.0 % (39.0-53.0) Mean Corpuscular Volume 85 fL (79-100) Mean Corpuscular Hemoglobin 30 pg (25-35) Mean Corpuscular Hemoglobin Concent 35 g/dL (31-37) Red Cell Distribution Width 13.7 % (11.5-14.5) Platelet Count 225 x10^3/uL (140-400) Neutrophils (%) (Auto) 55 % (31-73) Lymphocytes (%) (Auto) 28 % (24-48) Monocytes (%) (Auto) 9 % (0-9) Eosinophils (%) (Auto) 6 % (0-3) Basophils (%) (Auto) 2 % (0-3) Neutrophils # (Auto) 4.2 x10^3/uL (1.8-7.7) Lymphocytes # (Auto) 2.1 x10^3/uL (1.0-4.8) Monocytes # (Auto) 0.7 x10^3/uL (0.0-1.1) Eosinophils # (Auto) 0.5 x10^3/uL (0.0-0.7) Basophils # (Auto) 0.2 x10^3/uL (0.0-0.2) Sodium Level 135 mmol/L (136-145) Potassium Level 3.7 mmol/L (3.5-5.1) Chloride Level 101 mmol/L (98-107) Carbon Dioxide Level 22 mmol/L (21-32) Anion Gap 12 (6-14) Blood Urea Nitrogen 11 mg/dL (8-26) Creatinine 0.8 mg/dL (0.7-1.3) Estimated GFR (Cockcroft-Gault) 108.8 Glucose Level 263 mg/dL (70-99) Calcium Level 8.4 mg/dL (8.5-10.1) Test 12/14/20 07:18 Glucose (Fingerstick) 264 mg/dL (70-99) Brief Hospital Course Mr. Purvis is a 35 old male who presented with DKA. Patient was placed in ICU on IV insulin infusion. Transferred out of ICU with anion gap closed. 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 He can follow-up with his primary care provider within 1 week. Discussed regular PCP visits every 3 months until A1c within goal. Will discharge on 2 oral hypoglycemic agents. Discharge Information Condition at Discharge: Improved Follow Up: Weeks Disposition/Orders: D/C to Home Scheduled Atorvastatin Calcium (Atorvastatin Calcium) 40 Mg Tablet, 40 MG PO HS for FOR CHOLESTEROL, #30 Ref 0 (Reported) Entered as Reported by: LAY CINTRON on 12/12/201219 Last Taken: Unknown Dose on 12/09/20 Last Action: New Order on 12/12/201219 by LAY CINTRON Linagliptin (Tradjenta) 5 Mg Tablet, 5 MG PO DAILY for DM2, #30 Prescribed by: REINALDO MOROCHO MD on 12/14/20 0758 Lisinopril (Lisinopril) 10 Mg Tablet, 5 MG PO DAILY for HTN, #30 Prescribed by: REINALDO MOROCHO MD on 12/14/20 0758 Metformin Hcl (Glucophage) 500 Mg Tablet, 1,000 MG PO BIDWMEALS for DM2, #30 Prescribed by: REINALDO MOROCHO MD on 12/14/20 0758 Justicifation of Admission Dx: Justifications for Admission: Justification of Admission Dx: Yes DKA: DKA REINALDO MOROCHO MD Dec 14, 2020 08:02
[2020-12-14 08:09] LABS: TRIGLYCERIDES 1518 mg/dL (0-150); VLDLC 304 mg/dL (0-40)
--- NOTE | 2020-12-14 09:11 | NUR ---
SW following. Discussed with RN, discharge order for home with self care. RN advised no SW needs.
--- NOTE | 2020-12-14 09:41 | NUR ---
Discharge instructions and belongings reviewed with patient, verbalized understanding. Patient escorted out via ambulation by Emmanuelle LINK
== END 2020-12-14 09:44 | disposition home or self-care (01) | DRG 637 ==
LOC: ER 07:17 → 1 WEST ICU 09:00 → 4 NORTH 19:21
PROVIDERS: ADMIT Internal Medicine; ATTEND Internal Medicine
DX: E11.10 Type 2 diabetes mellitus with ketoacidosis without coma (principal); N17.0 Acute kidney failure with tubular necrosis; E87.1 Hypo-osmolality and hyponatremia; Z68.41 Body mass index [BMI] 40.0-44.9, adult; D72.829 Elevated white blood cell count, unspecified; E78.00 Pure hypercholesterolemia, unspecified; E78.5 Hyperlipidemia, unspecified; E86.0 Dehydration; F17.210 Nicotine dependence, cigarettes, uncomplicated; I10 Essential (primary) hypertension; K59.00 Constipation, unspecified; Z82.49 Family history of ischemic heart disease and other diseases of the circulatory system; Z83.3 Family history of diabetes mellitus; E66.01 Morbid (severe) obesity due to excess calories
CPT/HCPCS: 36415; 36600; 80048; 80053; 80061; 81001; 82010; 82805; 82962; 83036; 83735; 84100; 84443; 85025; 96361; 96365; 96375; 96376; 99291; J1644; J1815; J3480; J3490; J7030; G0378